=== PATIENT | male | born 1955 | race Caucasian/White ===

== ENCOUNTER 2017-01-18 17:44 | Inpatient (IN) | payer BC ==
[~2017-01-18] VITALS: Ht 175.3 cm; Wt 77.4 kg
[2017-01-18] MEDS ORDERED: IOHEXOL 350 MG/ML 10 ML VIAL (for RAD DIAG) IVCONTRAST ONE (17:45)
[2017-01-18 17:59] VITALS: O2SAT 100
[2017-01-18 18:03] LABS: I-STAT POTASSIUM 3.7 MMOL/L (3.5-4.9); I-STAT SODIUM 142 MMOL/L (138-146)
[2017-01-18 18:06] LABS: BASOPHIL # 0.1 TH/MM3 (0-0.2); BASOPHIL % 0.7 % (0.0-2.0); EOSINOPHIL # 0.1 TH/MM3 (0-0.4); EOSINOPHIL % 0.5 % (0.0-4.0); HEMATOCRIT 40.2 % (39.0-51.0); HEMO FLAGS DIFF FINAL; LYMPH % 18.3 % (9.0-44.0); LYMPHOCYTE # 2.2 TH/MM3 (1.0-4.8); MEAN CELL VOLUME 93.1 FL (80.0-100.0); MEAN CORPUSCULAR HEMOGLOBIN 32.2 PG (27.0-34.0); MEAN CORPUSCULAR HGB CONC 34.6 % (32.0-36.0); MONO % 5.4 % (0.0-8.0); NEUT % 75.1 % (16.0-70.0); PLATELET COUNT 220 TH/MM3 (150-450); RED BLOOD COUNT 4.32 MIL/MM3 (4.50-5.90); RED CELL DISTRIBUTION WIDTH 12.9 % (11.6-17.2)
[2017-01-18 18:18] LABS: APTT (PATIENT) 20.5 SEC (24.3-30.1)
[2017-01-18 18:25] VITALS: BP 157/81; PULSE 94; PULSE 98; RESP 18; O2SAT 100
--- NOTE | 2017-01-18 18:25 | RADRPT ---
EXAM DATE/TIME: 01/18/2017 17:36 [facility] COMPARISON: No previous studies available for comparison. INDICATIONS : Trauma Alert. MEDICAL HISTORY : non-responsive. SURGICAL HISTORY : non-responsive. ENCOUNTER: Initial ACUITY: 1 day PAIN SCORE: Non-responsive. LOCATION: pelvis FINDINGS: The patient is rotated. The fracture is not clearly identified. The hip joints appear grossly aligned . The patient is to have a CT of the abdomen and pelvis to follow. CONCLUSION: No acute disease. Lino Montenegro MD on January 18, 2017 at 18:23 Board Certified Radiologist. This report was verified electronically.
--- NOTE | 2017-01-18 18:25 | RADRPT ---
EXAM DATE/TIME: 01/18/2017 17:36 [facility] COMPARISON: No previous studies available for comparison. INDICATIONS : TRAUMA ALERT MEDICAL HISTORY : NON RESPONSIVE SURGICAL HISTORY : NON RESPONSIVE ENCOUNTER: Initial ACUITY: 1 day PAIN SCORE: Non-responsive. LOCATION: Bilateral chest FINDINGS: A single view of the chest demonstrates the lungs to be symmetrically aerated without evidence of mas s, infiltrate or effusion. The cardiomediastinal contours are unremarkable. Osseous structures are intact. There appears to be an old right clavicle deformity. CONCLUSION: No acute disease. Lino Montenegro MD on January 18, 2017 at 18:22 Board Certified Radiologist. This report was verified electronically.
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
--- NOTE | 2017-01-18 18:31 | RADRPT ---
EXAM DATE/TIME: 01/18/2017 18:01 [facility] COMPARISON: No previous studies available for comparison. INDICATIONS : Trauma Alert- Fall from tree. RADIATION DOSE: 45.69 CTDIvol (mGy) MEDICAL HISTORY : None SURGICAL HISTORY : Nephrectomy ENCOUNTER: Initial ACUITY: 1 day PAIN SCALE: 4/10 LOCATION: Bilateral cranial TECHNIQUE: Multiple contiguous axial images were obtained of the head. Using automated exposure control and adj ustment of the mA and/or kV according to patient size, radiation dose was kept as low as reasonably a chievable to obtain optimal diagnostic quality images. DICOM format image data is available electro nically for review and comparison. FINDINGS: CEREBRUM: The ventricles are normal for age. No evidence of midline shift, mass lesion, hemorrhage or acute in farction. No extra-axial fluid collections are seen. POSTERIOR FOSSA: The cerebellum and brainstem are intact. The 4th ventricle is midline. The cerebellopontine angle i s unremarkable. EXTRACRANIAL: The visualized portion of the orbits is intact. SKULL: The calvaria is intact. No evidence of skull fracture. CONCLUSION: Normal examination. Lino Montenegro MD on January 18, 2017 at 18:29 Board Certified Radiologist. This report was verified electronically.
--- NOTE | 2017-01-18 18:42 | RADRPT ---
EXAM DATE/TIME: 01/18/2017 18:01 [facility] COMPARISON: No previous studies available for comparison. INDICATIONS : Trauma Alert- Neck pain due to fall from tree. RADIATION DOSE: 15.42 CTDIvol (mGy) MEDICAL HISTORY : None SURGICAL HISTORY : Nephrectomy, left. ENCOUNTER: Initial ACUITY: 1 day PAIN SCALE: 3/10 LOCATION: Bilateral neck region. TECHNIQUE: Volumetric scanning of the cervical spine was performed. Multiplanar reconstructions in the sagittal, coronal and oblique axial planes were performed. Using automated exposure control and adjustment o f the mA and/or kV according to patient size, radiation dose was kept as low as reasonably achievable to obtain optimal diagnostic quality images. DICOM format image data is available electronically f or review and comparison. FINDINGS: VERTEBRAE: There is a fracture through the right C4 inferior facet. There also appears to be a fracture along th e same plane at the right C5 superior facet. These are best seen on the axial and sagittal images. No other fracture is seen. The cervical vertebral bodies are normal in height. C1 is intact. The C1-C2 articulation is maintained. The dens is intact. ALIGNMENT: No evidence of subluxation. C2-C3: There is mild disc osteophyte complex seen at the right lateral recess region. This causes a mild imp ress in on the anterior right side of the thecal sac. There continues to be CSF around the cord. The bony spinal canal is normal in size. The neural foramina are bilaterally patent. C3-C4: The disc demonstrates decreased height. There is mild bulging and osteophytic ridging causing a mild- to-moderate impression on the thecal sac. There is uncovertebral hypertrophy being worse on the right . There is some narrowing of the right neural foramina. The left neural foramen is patent. . C4-C5: Again noted are the fractures of the right inferior facet of C4 and the superior facet of C5 at the C 4-C5 facet joint without displacement. The disc demonstrates mild decreased height. There is mild dis c bulge and osteophytic ridging. There is uncovertebral hypertrophy. The neural foramina are bilatera lly patent. C5-C6: The disc demonstrates decreased height. There is diffuse disc bulge and osteophytic ridging causing a moderate impression on the thecal sac. There is uncovertebral hypertrophy. There is narrowing of the neural foramina bilaterally. C6-C7: The disc demonstrates decreased height. There is diffuse disc bulge and osteophytic ridging causing a moderate impression on the thecal sac. There is uncovertebral hypertrophy. There is narrowing of the neural foramina bilaterally. C7-T1: The bony spinal canal is normal in size. No evidence of disc bulge or herniation. The neural forami na are bilaterally patent. CONCLUSION: 1. Vertical fractures through the right inferior facet at C4 and the superior facet at C5 at the righ t C4-C5 facet joint. No displacement is seen. No other fracture is seen. 2. Degenerative change throughout the cervical spine as described above. Lino Montenegro MD on January 18, 2017 at 18:29 Board Certified Radiologist. This report was verified electronically.
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
[2017-01-18] MEDS ORDERED: LOVA20TA PO (18:50)
[2017-01-18] MEDS ORDERED: PRIL20TA2 PO (18:50)
--- NOTE | 2017-01-18 18:55 | RADRPT ---
EXAM DATE/TIME: 01/18/2017 18:07 [facility] COMPARISON: CT THORACIC SPINE W/O CONTRAST, January 18, 2017, 18:07. INDICATIONS : Trauma Alert- Chest pains from fall from tree. IV CONTRAST: 97 cc Omnipaque 350 (iohexol) IV RADIATION DOSE: 13.15 CTDIvol (mGy) ; Combined studies - Thorax/Abdomen/Pelvis MEDICAL HISTORY : None SURGICAL HISTORY : Nephrectomy. ENCOUNTER: Initial ACUITY: 1 day PAIN SCALE: 4/10 LOCATION: Bilateral chest TECHNIQUE: Volumetric scanning of the chest was performed. Using automated exposure control and adjustment of t he mA and/or kV according to patient size, radiation dose was kept as low as reasonably achievable to obtain optimal diagnostic quality images. DICOM format image data is available electronically for review and comparison. Follow-up recommendations for detected pulmonary nodules are based at a minimum on nodule size and pa tient risk factors according to Fleischner Society Guidelines. FINDINGS: LUNGS: There is minimal increased density at the posterior lung bases being more prominent on the right like ly with either atelectasis or minimal contusion. PLEURA: There is no pleural thickening or pleural effusion. MEDIASTINUM: The heart and great vessels demonstrate no acute abnormality. There is no mediastinal or hilar lymph adenopathy. AXILLAE: Within normal limits. No lymphadenopathy. SKELETAL: There appears to be a possible old healed deformity at the right clavicle. No acute fracture is seen. There is soft tissue swelling/hemorrhage in the deep subcutaneous fat over the back in the mid chest and upper abdomen region. MISCELLANEOUS: The patient is to have a CT of the abdomen and pelvis to follow. CONCLUSION: 1. Soft tissue swelling/hemorrhage in the subcutaneous fat at the back without a bony injury seen. 2. Minimal atelectasis or contusion of the posterior lung base. Lino Montenegro MD on January 18, 2017 at 18:47 Board Certified Radiologist. This report was verified electronically.
--- NOTE | 2017-01-18 19:04 | RADRPT ---
EXAM DATE/TIME: 01/18/2017 18:07 [facility] COMPARISON: No previous studies available for comparison. INDICATIONS : Trauma Alert- Abdomen pain from fall from tree. IV CONTRAST: 97 cc Omnipaque 350 (iohexol) IV ORAL CONTRAST: No oral contrast ingested. RADIATION DOSE: 13.15 CTDIvol (mGy) ; Combined studies - Thorax/Abdomen/Pelvis MEDICAL HISTORY : None SURGICAL HISTORY : Nephrectomy. ENCOUNTER: Initial ACUITY: 1 day PAIN SCALE: 4/10 LOCATION: Bilateral upper quadrant TECHNIQUE: Volumetric scanning of the abdomen and pelvis was performed. Using automated exposure control and ad justment of the mA and/or kV according to patient size, radiation dose was kept as low as reasonably achievable to obtain optimal diagnostic quality images. DICOM format image data is available electro nically for review and comparison. FINDINGS: LOWER LUNGS: Please see the CT of the chest report. LIVER: Homogeneous density without lesion. There is no dilation of the biliary tree. There are possible sma ll gallstone seen. SPLEEN: Normal size without lesion. PANCREAS: Within normal limits. KIDNEYS: No acute abnormality seen in the kidneys. No hydronephrosis is seen. There is a 1.7 cm fat density ma ss at the posterior mid left kidney likely related to an angiomyolipoma. There are adjacent clips or calcification in this region which can suggest the patient may have had prior resection or biopsy. Th ere is also a small 0.6 cm cyst at the inferior left kidney. ADRENAL GLANDS: Within normal limits. VASCULAR: There is no aortic aneurysm. BOWEL/MESENTERY: The stomach, small bowel, and colon demonstrate no acute abnormality. There is no free intraperitone al air or fluid. ABDOMINAL WALL: Within normal limits. RETROPERITONEUM: There is no lymphadenopathy. BLADDER: No wall thickening or mass. REPRODUCTIVE: Within normal limits. Prostatic calcifications are present. INGUINAL: There is no lymphadenopathy or hernia. MUSCULOSKELETAL: A fracture is not clearly seen. The patient is to have a CT of the thoracic and lumbar spine. CONCLUSION: 1. No acute abnormality is seen. 2. 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 3. Suspected small gallstones. Lino Montenegro MD on January 18, 2017 at 18:57 Board Certified Radiologist. This report was verified electronically.
[2017-01-18 19:08] LABS: ALCOHOL LESS THAN 3 MG/DL (0-5)
--- NOTE | 2017-01-18 19:08 | RADRPT ---
EXAM DATE/TIME: 01/18/2017 18:07 [facility] COMPARISON: No previous studies available for comparison. INDICATIONS : Trauma Alert- Back pain due to fall from tree. RADIATION DOSE: ; Reconstructed from previous dataset, no dose MEDICAL HISTORY : None SURGICAL HISTORY : Nephrectomy ENCOUNTER: Initial ACUITY: 1 day PAIN SCALE: 6/10 LOCATION: Bilateral back region. TECHNIQUE: Volumetric scanning of the thoracic spine was performed. Multiplanar reconstructions in the sagittal , coronal and oblique axial planes were performed. Using automated exposure control and adjustment o f the mA and/or kV according to patient size, radiation dose was kept as low as reasonably achievable to obtain optimal diagnostic quality images. DICOM format image data is available electronically f or review and comparison. FINDINGS: The vertebral bodies of the thoracic spine are in normal alignment without evidence of subluxation. Vertebral body height is maintained. No fractures are seen. Marginal osteophytes are seen in the mid and lower thoracic spine. There is increased soft tissue density seen in the deep subcutaneous fat o thomas the back in the midline. T1-T2: Normal. T2-T3: The thecal sac has a normal diameter. No evidence of disc bulge or protrusion. T3-T4: The thecal sac has a normal diameter. No evidence of disc bulge or protrusion. T4-T5: The thecal sac has a normal diameter. No evidence of disc bulge or protrusion. T5-T6: The thecal sac has a normal diameter. No evidence of disc bulge or protrusion. T6-T7: The thecal sac has a normal diameter. No evidence of disc bulge or protrusion. T7-T8: The thecal sac has a normal diameter. No evidence of disc bulge or protrusion. T8-T9: The thecal sac has a normal diameter. No evidence of disc bulge or protrusion. T9-T10: The thecal sac has a normal diameter. No evidence of disc bulge or protrusion. T10-T11: The thecal sac has a normal diameter. No evidence of disc bulge or protrusion. T11-T12: The thecal sac has a normal diameter. No evidence of disc bulge or protrusion. T12-L1: The thecal sac has a normal diameter. No evidence of disc bulge or protrusion. CONCLUSION: No fractures seen. There is soft tissue swelling seen in the deep subcutaneous fat in the midline in the back. Lino Montenegro MD on January 18, 2017 at 19:03 Board Certified Radiologist. This report was verified electronically.
--- NOTE | 2017-01-18 19:54 | PD.CAR.PN ---
CVT Progress Note Subjective/Hospital Course: Patient fell about 20 feet out of a tree. No LOC. Ful workup reveals only C4 and C5 facet fx Admit, MRI J Objective: Vital Signs Date Time Temp Pulse Resp B/P (MAP) Pulse Ox O2 Delivery O2 Flow Rate FiO2 01/18/17 18:25 100 Room Air 01/18/17 18:25 94 18 157/81 (106) 100 Room Air 01/18/17 18:25 98 18 157/81 (106) 100 Room Air 01/18/17 17:59 100 21 Labs: Laboratory Tests Test 01/18/17 17:45 White Blood Count 12.0 TH/MM3 (4.0-11.0) Red Blood Count 4.32 MIL/MM3 (4.50-5.90) Hemoglobin 13.9 GM/DL (13.0-17.0) Bedside Hemoglobin 13.6 G/DL (12.0-17.0) Hematocrit 40.2 % (39.0-51.0) Bedside Hematocrit 40.0 % (38.0-51.0) Mean Corpuscular Volume 93.1 FL (80.0-100.0) Mean Corpuscular Hemoglobin 32.2 PG (27.0-34.0) Mean Corpuscular Hemoglobin Concent 34.6 % (32.0-36.0) Red Cell Distribution Width 12.9 % (11.6-17.2) Platelet Count 220 TH/MM3 (150-450) Mean Platelet Volume 8.1 FL (7.0-11.0) Neutrophils (%) (Auto) 75.1 % (16.0-70.0) Lymphocytes (%) (Auto) 18.3 % (9.0-44.0) Monocytes (%) (Auto) 5.4 % (0.0-8.0) Eosinophils (%) (Auto) 0.5 % (0.0-4.0) Basophils (%) (Auto) 0.7 % (0.0-2.0) Neutrophils # (Auto) 9.0 TH/MM3 (1.8-7.7) Lymphocytes # (Auto) 2.2 TH/MM3 (1.0-4.8) Monocytes # (Auto) 0.6 TH/MM3 (0-0.9) Eosinophils # (Auto) 0.1 TH/MM3 (0-0.4) Basophils # (Auto) 0.1 TH/MM3 (0-0.2) CBC Comment DIFF FINAL Differential Comment Prothrombin Time 11.0 SEC (9.8-11.6) Prothromb Time International Ratio 1.0 RATIO Activated Partial Thromboplast Time 20.5 SEC (24.3-30.1) Bedside Sodium 142 MMOL/L (138-146) Bedside Potassium 3.7 MMOL/L (3.5-4.9) Bedside Chloride 104 MMOL/L (98-109) Bedside Blood Urea Nitrogen 22 MG/DL (8-26) Bedside Creatinine 1.2 MG/DL (0.8-1.3) Bedside Glucose 104 MG/DL (60-95) Ethyl Alcohol Level LESS THAN 3 MG/DL (0-5) Result Diagram: 01/18/17 1745 Caitlin Browne MD Jan 18, 2017 19:54
[2017-01-18] MEDS ORDERED: MORPHINE SULFATE 4 MG/ML INJ IV PUSH PRN (20:00)
[2017-01-18] MEDS ORDERED: ONDANSETRON HCL 4 MG/2 ML VIAL IV PUSH PRN (20:00)
[2017-01-18] MEDS ORDERED: NALOXONE HCL 0.4 MG/ML AMP IV PUSH PRN (20:00)
[2017-01-18] MEDS ORDERED: Post-op Orders (for Pharmacy) MISC XX ONE (20:00)
[2017-01-18] MEDS ORDERED: SODIUM CHLORIDE 0.9% FLUSH 10 ML FLUSH IV FLUSH PRN (20:00)
[2017-01-18] MEDS: ACETAMINOPHEN/HYDROcodone 325 MG/5 MG TAB PO PRN (20:08)
[2017-01-18] MEDS ORDERED: LIDOCAINE HCL 1% 50 ML VIAL INFIL ONE (20:30)
--- NOTE | 2017-01-18 20:45 | PD ---
Physical Exam Date Seen by Provider: Jan 18, 2017 Time Seen by Provider: 20:44 Narrative I was asked by Dr. Peacock to repair laceration to the patient's left forearm. Please see her documentation for full history and physical. Data Data Last Documented VS Vital Signs Date Time Temp Pulse Resp B/P (MAP) Pulse Ox O2 Delivery O2 Flow Rate FiO2 01/18/17 18:25 100 Room Air 01/18/17 18:25 94 18 157/81 (106) 01/18/17 17:59 21 Orders Orders I-Stat Profile (01/18/17 17:46) I-Stat Creatinine (01/18/17 17:46) Complete Blood Count With Diff (01/18/17 17:46) Prothrombin Time / Inr (Pt) (01/18/17 17:46) Act Partial Throm Time (Ptt) (01/18/17 17:46) Type And Screen (01/18/17 17:46) Alcohol (Ethanol) (01/18/17 17:46) Drug Screen, Random Urine (01/18/17 17:46) Pelvis, Ap Only (Routine) (01/18/17 17:46) Ct Brain W/O Iv Contrast(Rout) (01/18/17 17:46) Ct Cerv Spine W/O Contrast (01/18/17 17:46) Ct Abd/Pel W Iv Contrast(Rout) (01/18/17 17:46) Ct Thorax/ Chest W Iv Contrast (01/18/17 17:46) Ct Thor Spine W/O Contrast (01/18/17 17:46) Ct Lumb Spine W/O Contrast (01/18/17 17:46) Ct Facial Bones W/O Iv Cont (01/18/17 17:46) Iv Access Insert/Monitor (01/18/17 17:46) Ecg Monitoring (01/18/17 17:46) Oximetry (01/18/17 17:46) Oxygen Administration (01/18/17 17:46) Chest, Single Ap (01/18/17 17:46) Iohexol 350 Inj (Omnipaque 350 Inj) (01/18/17 17:45) Admit Order (Ed Use Only) (01/18/17 ) [place] J Collar (01/18/17 ) Labs Laboratory Tests Test 01/18/17 17:45 White Blood Count 12.0 TH/MM3 Red Blood Count 4.32 MIL/MM3 Hemoglobin 13.9 GM/DL Bedside Hemoglobin 13.6 G/DL Hematocrit 40.2 % Bedside Hematocrit 40.0 % Mean Corpuscular Volume 93.1 FL Mean Corpuscular Hemoglobin 32.2 PG Mean Corpuscular Hemoglobin Concent 34.6 % Red Cell Distribution Width 12.9 % Platelet Count 220 TH/MM3 Mean Platelet Volume 8.1 FL Neutrophils (%) (Auto) 75.1 % Lymphocytes (%) (Auto) 18.3 % Monocytes (%) (Auto) 5.4 % Eosinophils (%) (Auto) 0.5 % Basophils (%) (Auto) 0.7 % Neutrophils # (Auto) 9.0 TH/MM3 Lymphocytes # (Auto) 2.2 TH/MM3 Monocytes # (Auto) 0.6 TH/MM3 Eosinophils # (Auto) 0.1 TH/MM3 Basophils # (Auto) 0.1 TH/MM3 CBC Comment DIFF FINAL Differential Comment Prothrombin Time 11.0 SEC Prothromb Time International Ratio 1.0 RATIO Activated Partial Thromboplast Time 20.5 SEC Bedside Sodium 142 MMOL/L Bedside Potassium 3.7 MMOL/L Bedside Chloride 104 MMOL/L Bedside Blood Urea Nitrogen 22 MG/DL Bedside Creatinine 1.2 MG/DL Bedside Glucose 104 MG/DL Ethyl Alcohol Level LESS THAN 3 MG/DL MDM Supervised Visit with LUIZA: No Procedures Procedure Narrative LACERATION LOCATION: Left forearm LENGTH: 3 cm NUMBER OF STITCHES/WOODY: 6 simple interrupted sutures REPAIR: The area of the laceration was prepped with Betadine and sterilely draped. The laceration was infiltrated with 1% lidocaine. The wound was copiously irrigated and explored without evidence of foreign body, tendon injury or neurovascular injury. The wound was closed using 4-0 Prolene. This was a single layer repair. A sterile dressing was applied. The patient was advised to keep the dressing clean and dry. Patient tolerated the procedure well. Diagnosis Primary Impression: Cervical spine fracture Qualified Codes: S12.301A - Unspecified nondisplaced fracture of fourth cervical vertebra, initial encounter for closed fracture Tori Aguilar Jan 18, 2017 20:45
--- NOTE | 2017-01-18 20:53 | RADRPT ---
EXAM DATE/TIME: 01/18/2017 18:07 [facility] COMPARISON: No previous studies available for comparison. INDICATIONS : Trauma Alert- Low back pain from fall from tree. RADIATION DOSE: ; Reconstructed from previous data set, no dose MEDICAL HISTORY : None SURGICAL HISTORY : Nephrectomy. ENCOUNTER: Initial ACUITY: 1 day PAIN SCALE: 7/10 LOCATION: Bilateral lower back. TECHNIQUE: Volumetric scanning of the lumbar spine was performed. Multiplanar reconstructions in the sagittal, coronal and oblique axial planes were performed. Using automated exposure control and adjustment of the mA and/or kV according to patient size, radiation dose was kept as low as reasonab ly achievable to obtain optimal diagnostic quality images. DICOM format image data is available [facility] for review and comparison. FINDINGS: VERTEBRAE: Normal vertebral body height. Mild marginal osteophytes are seen throughout. ALIGNMENT: No evidence of subluxation. T12-L1: The thecal sac has a normal diameter. No evidence of disc bulge or protrusion. The neural foramina are patent bilaterally. L1-L2: Disc demonstrates decreased height. There is calcification at the disc. There is slight b ulging without significant stenosis. The neural foramina are normal. L2-L3: The thecal sac has a normal diameter. No evidence of disc bulge or protrusion. The neural foramina are patent bilaterally. L3-L4: The thecal sac has a normal diameter. No evidence of disc bulge or protrusion. The neural foramina are patent bilaterally. L4-L5: There is minimal bulging without significant stenosis. The neural foramina are normal. L5-S1: Disc demonstrates decreased height. There is mild diffuse disc bulge and osteophytic ridgi ng. There is a focal area of gas likely related to degenerative change at the posterior inferior asp ect of the L5 vertebral body. There is mild facet hypertrophy. There is narrowing of the neural for sandra bilaterally. CONCLUSION: 1. No acute abnormality is seen. 2. Degenerative change at the L1-L2 and L5-S1 levels as described above. The chronic changes are more prominent at the L5-S1 level. Lino Montenegro MD on January 18, 2017 at 19:07 Board Certified Radiologist. This report was verified electronically.
[2017-01-18 21:45] VITALS: BP 138/71; PULSE 99; RESP 18; TEMP 97.9; O2SAT 98
[2017-01-18] MEDS: FAMOTIDINE 20 MG TAB PO SCH (22:52)
[2017-01-18] MEDS: SODIUM CHLORIDE 0.9% FLUSH 10 ML FLUSH IV FLUSH SCH (22:54)
[2017-01-19 00:50] VITALS: BP 131/67; PULSE 80; RESP 18; TEMP 98.3; O2SAT 99
[2017-01-19] MEDS: ACETAMINOPHEN/HYDROcodone 325 MG/5 MG TAB PO PRN ×2 (01:56→13:03)
[2017-01-19 04:28] VITALS: BP 107/61; PULSE 66; RESP 18; TEMP 98; O2SAT 98
[2017-01-19] MEDS ORDERED: ACETAMINOPHEN/HYDROcodone 325 MG/10 MG TAB PO PRN (07:15)
[2017-01-19] MEDS ORDERED: LACTULOSE SYRUP 20 GM/30 ML CUP PO PRN (07:15)
[2017-01-19 07:25] LABS: AUTOMATED NEUTROPHIL # 4.7 TH/MM3 (1.8-7.7); BASOPHIL % 0.5 % (0.0-2.0); EOSINOPHIL # 0.1 TH/MM3 (0-0.4); EOSINOPHIL % 1.3 % (0.0-4.0); HEMATOCRIT 39.3 % (39.0-51.0); HEMO FLAGS DIFF FINAL; LYMPH % 28.8 % (9.0-44.0); LYMPHOCYTE # 2.3 TH/MM3 (1.0-4.8); MEAN CELL VOLUME 93.6 FL (80.0-100.0); MEAN CORPUSCULAR HEMOGLOBIN 32.3 PG (27.0-34.0); MEAN CORPUSCULAR HGB CONC 34.5 % (32.0-36.0); MONO % 9.9 % (0.0-8.0); NEUT % 59.5 % (16.0-70.0); PLATELET COUNT 207 TH/MM3 (150-450); RED CELL DISTRIBUTION WIDTH 12.9 % (11.6-17.2); WHITE BLOOD COUNT 7.9 TH/MM3 (4.0-11.0)
[2017-01-19 07:46] LABS: POTASSIUM 3.5 MEQ/L (3.5-5.1)
[2017-01-19 08:00] VITALS: BP 133/77; PULSE 65; RESP 18; TEMP 96.6; O2SAT 99
--- NOTE | 2017-01-19 08:00 | RADRPT ---
EXAM DATE/TIME: 01/19/2017 07:34 [facility] COMPARISON: CHEST SINGLE AP, January 18, 2017, 17:36. INDICATIONS : Trauma to chest post fall yesterday MEDICAL HISTORY : None. SURGICAL HISTORY : Nephrectomy ENCOUNTER: Subsequent ACUITY: 1 day PAIN SCORE: 0/10 LOCATION: Bilateral chest FINDINGS: A single view of the chest demonstrates the lungs to be symmetrically aerated without evidence of mas s, infiltrate or effusion. The cardiomediastinal contours are unremarkable. Osseous structures are intact. CONCLUSION: No acute disease. No significant change has occurred. Tien Wright MD on January 19, 2017 at 7:57 Board Certified Radiologist. This report was verified electronically.
[2017-01-19] MEDS: FAMOTIDINE 20 MG TAB PO SCH (08:45)
[2017-01-19] MEDS: SODIUM CHLORIDE 0.9% FLUSH 10 ML FLUSH IV FLUSH SCH (08:45)
[2017-01-19] MEDS: METHOCARBAMOL 500 MG TAB PO SCH ×2 (08:45→15:24)
[2017-01-19] MEDS ORDERED: DOCUSATE SODIUM 50 MG/SENNA 8.6 MG TAB PO SCH (09:00)
--- NOTE | 2017-01-19 10:32 | RADRPT ---
EXAM DATE/TIME: 01/19/2017 09:57 [facility] COMPARISON: CT CERVICAL SPINE W/O CONTRAST, January 18, 2017, 18:01. INDICATIONS : Trauma. Abnormal CT. MEDICAL HISTORY : Renal carcinoma. SURGICAL HISTORY : Renal tumor removal. ENCOUNTER: Initial ACUITY: 1 day PAIN SCORE: 5/10 LOCATION: Paraspinal TECHNIQUE: Multiplanar, multisequence MRI examination of the cervical spine was performed. FINDINGS: VERTEBRAE: Normal vertebral body height. Homogeneous marrow signal. Patient has a known fracture through the ri ght facet at C4-[address] Cervical Spine. ALIGNMENT: No evidence of subluxation. CORD: Normal configuration and signal. POST FOSSA: The cerebellar tonsils are normal in position. C2-C3: Right paracentral bulging. The neural foramina are patent bilaterally. C3-C4: Broad-based bulging with disc osteophyte complex slightly more on the right than the left. There is n arrowing of the right neural foramina. The left neural foramina is patent. C4-C5: Broad-based and right lateral bulging with narrowing of the right neural foramina. The left neural fo ramen is patent. C5-C6: Diffuse broad-based bulging disc osteophyte complex. Narrowing of the neural foramina bilaterally. Mi ld to moderate spinal canal stenosis. C6-C7: Diffuse broad-based bulging with narrowing of the neural foramina bilaterally. Mild to moderate spina l canal stenosis. C7-T1: The thecal sac has a normal configuration. There is no evidence of disc herniation or spinal canal s tenosis. The neural foramina are patent bilaterally. CONCLUSION: 1. Mild to moderate spinal canal stenosis C5-6 and C6-7. 2. Broad-based and right lateral bulging at C4-5 3. Broad based bulging with disc osteophyte complex at C3-4 4. Right paracentral bulging at C2-C3 5. Known nondisplaced fracture through the right facet at C4-5. Tien Wright MD on January 19, 2017 at 10:24 Board Certified Radiologist. This report was verified electronically.
[2017-01-19] MEDS ORDERED: BENZOCAINE 6 MG/MENTHOL 10 MG LOZENGE BUCCAL PRN (11:15)
[2017-01-19] MEDS ORDERED: BACITRACIN TOP OINT 15 GM TUBE TOPICAL SCH (11:15)
[2017-01-19 12:00] VITALS: BP 149/82; PULSE 66; RESP 16; TEMP 97; O2SAT 98
[2017-01-19] MEDS ORDERED: HYDR-3516 PO (12:41)
[2017-01-19] MEDS ORDERED: METH500T3 PO (12:41)
[2017-01-19] MEDS ORDERED: SENN1TAB PO (12:41)
--- NOTE | 2017-01-19 12:56 | HHI.DS ---
Discharge Summary Admission Date Jan 18, 2017 at 19:27 Discharge Date: Jan 19, 2017 Admitting Diagnosis cervical spine fracture (1) Cervical spine fracture ICD Codes: S12.9XXA - Fracture of neck, unspecified, initial encounter Status: Acute (2) Concussion ICD Codes: S06.0X9A - Concussion with loss of consciousness of unspecified duration, initial encounter (3) Back avulsion ICD Codes: S21.209A - Unspecified open wound of unspecified back wall of thorax without penetration into thoracic cavity, initial encounter (4) Laceration of left forearm ICD Codes: S51.812A - Laceration without foreign body of left forearm, initial encounter (5) Right pulmonary contusion ICD Codes: S27.321A - Contusion of lung, unilateral, initial encounter Brief History S/P Trauma: Fall CBC/BMP: 01/19/17 0705 01/19/17 0705 Significant Findings Laboratory Tests Test 01/18/17 17:45 01/18/17 22:20 01/19/17 07:05 White Blood Count 12.0 TH/MM3 (4.0-11.0) Red Blood Count 4.32 MIL/MM3 (4.50-5.90) 4.20 MIL/MM3 (4.50-5.90) Neutrophils (%) (Auto) 75.1 % (16.0-70.0) Neutrophils # (Auto) 9.0 TH/MM3 (1.8-7.7) Activated Partial Thromboplast Time 20.5 SEC (24.3-30.1) Bedside Glucose 104 MG/DL (60-95) Monocytes (%) (Auto) 9.9 % (0.0-8.0) Calcium Level 8.3 MG/DL (8.5-10.1) Estimat Glomerular Filtration Rate 68 ML/MIN (>89) Imaging Last Impressions Cervical Spine MRI 01/19/17 0600 Signed Impressions: Service Date/Time: Thursday, January 19, 2017 09:57 - CONCLUSION: 1. Mild to moderate spinal canal stenosis C5-6 and C6-7. 2. Broad-based and right lateral bulging at C4-5 3. Broad based bulging with disc osteophyte complex at C3-4 4. Right paracentral bulging at C2-C3 5. Known nondisplaced fracture through the right facet at C4-5. Tien Wright MD Chest X-Ray 01/19/17 0000 Signed Impressions: Service Date/Time: Thursday, January 19, 2017 07:34 - CONCLUSION: No acute disease. No significant change has occurred. Tien Wright MD Thoracic Spine CT 01/18/17 174 Signed Impressions: Service Date/Time: Wednesday, January 18, 2017 18:07 - CONCLUSION: No fractures seen. There is soft tissue swelling seen in the deep subcutaneous fat in the midline in the back. Lino Montenegro MD Pelvis X-Ray [id number]/[id number] Signed Impressions: Service Date/Time: Wednesday, January 18, 2017 17:36 - CONCLUSION: No acute disease. Lino Montenegro MD Maxillofacial CT [id number]/[id number] Signed Impressions: Service Date/Time: Wednesday, January 18, 2017 18:01 - CONCLUSION: 1. No fracture is seen. 2. Suspected BB at the left kicking machine operator muscle. 3. Left ethmoid sinus disease. Lino Montenegro MD Lumbar Spine CT [id number]/[id number] Signed Impressions: Service Date/Time: Wednesday, January 18, 2017 18:07 - CONCLUSION: 1. No acute abnormality is seen. 2. Degenerative change at the L1-L2 and L5-S1 levels as described above. The chronic changes are more prominent at the L5-S1 level. Lino Montenegro MD Head CT [id number]/[id number] Signed Impressions: Service Date/Time: Wednesday, January 18, 2017 18:01 - CONCLUSION: Normal examination. Lino Montenegro MD Chest CT [id number]/18/171745 Signed Impressions: Service Date/Time: Wednesday, January 18, 2017 18:07 - CONCLUSION: 1. Soft tissue swelling/hemorrhage in the subcutaneous fat at the back without a bony injury seen. 2. Minimal atelectasis or contusion of the posterior lung base. Lino Montenegro MD Cervical Spine CT [id number]/18/171745 Signed Impressions: Service Date/Time: Wednesday, January 18, 2017 18:01 - CONCLUSION: 1. Vertical fractures through the right inferior facet at C4 and the superior facet at C5 at the right C4-C5 facet joint. No displacement is seen. No other fracture is seen. 2. Degenerative change throughout the cervical spine as described above. Lino Montenegro MD Abdomen/Pelvis CT 01/18/17 174 Signed Impressions: Service Date/Time: Wednesday, January 18, 2017 18:07 - CONCLUSION: 1. No acute abnormality is seen. 2. 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 3. Suspected small gallstones. Lino Montenegro MD PE at Discharge GENERAL: 61-year-old well-nourished, well developed male lying in bed with cervical collar on. SKIN: Warm and dry. Abrasions noted to face. Dressing to back removed. 10cm x1cm avulsion noted on right lumbar area. HEAD: Normocephalic. ENT: No nasal bleeding or discharge. Mucous membranes pink and moist. NECK: Trachea midline. No JVD. [place] J collar in place. CARDIOVASCULAR: Regular rate and rhythm. RESPIRATORY: No accessory muscle use. Lungs clear to auscultation. Breath sounds equal bilaterally. GASTROINTESTINAL: Abdomen soft, non-tender, nondistended. + BS. MUSCULOSKELETAL: Extremities without cyanosis, or edema. MAEW. + perfused, + sensation NEUROLOGICAL: Awake and alert. Normal speech. Hospital Course CABAZON: Fell out of a tree approximately 20 feet. No LOC. INJURIES: C4 - C5 facet fx Back avulsion RIGHT Lung contusion LEFT forearm lac (sutures) Concussion PMHx: Hyperlipidemia Diet: Regular Pulm: IS Pain: [place], Robaxin Activity: OOB. PT and OT ordered GI: Pepcid Bowel: Jojo-colace, PRN Lactulose. LBM 0 DVT: SCDs C4 - C5 facet fx Neurosurgery consulted Nonoperative management Maintain cervical collar for 3 months Pain control No heavy lifting Cleared for discharge, follow-up as outpatient Back avulsion Cleanse wound daily with soap and water. Apply antibacterial ointment and cover with dry dressing. RIGHT Lung contusion Supportive care Pulmonary toileting OOB LEFT forearm lac Wound care: Cleanse daily with soap and water. Leave open to air. Suture removal in 8-10 days Concussion Supportive care Avoid second head injury Post-concussive education Follow-up with PCP in 1 week Plan of care discussed with patient and at bedside. Patient aware and verbally consents to plan. Patient is clear from trauma surgery standpoint to safely discharge home. Follow-up with neurosurgery in [place]. Pt Condition on Discharge: Stable Discharge Disposition: Discharge Home Discharge Instructions DIET: Follow Instructions for: As Tolerated, No Restrictions Activities you can perform: Full Weight Bearing, See Additionl Instruction Activities to Avoid: Lifting/Bending, Strenuous Activity Other Activity Instructions: Wear cervical collar at all times. No driving for 2 weeks. Jeff Appiah Jan 19, 2017 12:55
--- NOTE | 2017-01-19 13:06 | MH ---
cc: MD LUISANA,DENNY DATE OF ADMISSION: 01/18/2017 ADMITTING DIAGNOSIS: C4-5 facet fracture and fall. HISTORY OF PRESENT ILLNESS: This pleasant 51-shilpa gentleman fell out of a tree while cutting some branches about 20 feet and landed on the soft ground. He was transferred to us as a Priority One Trauma Alert. On arrival, the patient was on a spinal board with a cervical collar placed, awake, alert, oriented and complaining about some back pain and numbness in the right arm. PAST MEDICAL HISTORY: 1. Hyperlipidemia. PAST SURGICAL HISTORY Negative. SOCIAL HISTORY: The patient does not smoke or drink. MEDICATIONS: 1. Losartan. 2. Prilosec. PHYSICAL EXAMINATION: GENERAL: The physical examination reveals a pleasant 60-csb-dbnq-old gentleman in no acute distress. HEAD, EYES, EARS, NOSE, THROAT: Normocephalic. No trauma to the head. Pupils equal and reactive. Extraocular muscles intact. No hemotympanum. No saenz sign. NECK: Bilateral carotid pulses. No bruits. The patient is tender over the right shoulder. The cervical collar was carefully repositioned and replaced with a [place] J. CHEST: Bilateral breath sounds. HEART: Regular rhythm. No signs of trauma to the chest. ABDOMEN: Soft. Active bowel sounds. No rebound. No guarding. No sign of trauma to the abdomen. PELVIS: Stable. EXTREMITIES: The patient has bilateral femoral, popliteal, dorsalis pedis and posterior tibial pulses. Bilateral brachial, radial and ulnar pulses. NEUROLOGIC: [place] Coma Scale is 15. The patient moves all four extremities. Motor and sensory is intact. BACK: Log-rolling to the back reveals one longitudinal gash in the middle of the back in the form of a sort of a deep abrasion which is about 4 mm wide and about 3 mm deep into the skin but not through the skin. This was debrided. There is really nothing to put together here and it will be allowed to heal on its own. IMPRESSION: The patient underwent full workup and he was found to have C4-5 nondisplaced facet fracture; therefore, the patient underwent MRI today which reveals the same without any signs of ligamentous or tendon injuries. Denny GROVE/LIV /12:46 PM /12:57 PM
--- NOTE | 2017-01-19 14:42 | MB ---
cc: IGNACIA NÚÑEZ M.D. DATE OF CONSULTATION: 01/19/2017. REASON FOR CONSULTATION: Right C4-5 facet fracture. HISTORY OF PRESENT ILLNESS: 61-year-old gentleman who presented to the [facility] Emergency Room last evening after a fall while trimming a tree about 20 feet and fell back on his head as he struck the stairs and the grass. He denies loss of consciousness. Initially he had complaints of neck pain and some numbness in his hands, which resolved after a few minutes although he has been complaining of some "prickly" feeling distally in his forearm and hands bilaterally. He denies any weakness. He denies any incontinence. An extensive trauma workup was undertaken including CT scan of the head as well as CT scan of the cervical spine, thoracic spine and lumbar spine. The only finding is a right C4-5 facet nondisplaced fracture. He does have multilevel degenerative changes in his cervical spine. He was maintained in a cervical collar and overnight states that he is doing well. He has been ambulating and he is requesting we discharge home. 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 MRI scan of cervical spine was also obtained and reviewed and shows disk protrusions at C4-5, C5-6 and C6-7 levels with mild to moderate spinal stenosis along with moderate right foraminal stenosis at C3-4 and C4-5 levels some disc protrusions. No intrinsic spinal cord changes are noted. He also had a laceration of the left forearm which was repaired by the emergency room physician. PAST MEDICAL HISTORY: 1. Hyperlipidemia. 2. Gastroesophageal reflux. MEDICATIONS: 1. Prilosec 20 milligrams daily. 2. Lovastatin 20 milligrams daily. ALLERGIES: NO KNOWN DRUG ALLERGIES. SOCIAL HISTORY: He is and is is here with him. 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 They are contemplating buying a house locally. He denies any tobacco use. He drinks alcohol usually on the weekends. REVIEW OF SYSTEMS: Pertinent positives mentioned below, otherwise negative including mild neck pain. He complains of some prickly sensation in his forearm and hands which is improving. He initially had some transient numbness in his right hand more than left which has resolved. He denies any weakness in the upper or lower extremities. He denies any incontinence. No chest pain. No shortness of breath. No abdominal pain. He does complain of some soft tissue superficial thoracic pain from a large abrasion. No history of easy bleeding or bruising. No fevers or chills. No recent weight gain or weight loss. No double vision or blurred vision. No nausea or vomiting. FAMILY HISTORY: Family history is unremarkable. LABORATORY STUDIES: White blood cell count 7.9, hemoglobin 13.5, platelet count 207,000. PT 11. INR 1.0. PTT 20.5. Sodium 139, potassium 3.5, BUN 15, creatinine 0.95, glucose 96. Toxicology screen is negative. PHYSICAL EXAMINATION: GENERAL: He is a well-developed gentleman who is resting in his bed with at bedside in no apparent distress. VITAL SIGNS: Temperature 96.6, pulse is 65, respiratory rate 18, blood pressure 133/77, oxygen saturation 99% on room air. HEAD: No saenz or raccoon signs. NECK: The neck is immobilized in a Lewis J collar. CHEST: Clear to auscultation bilaterally. HEART: Regular rate and rhythm. Normal S1 and S2. ABDOMEN: The abdomen is soft, nontender. Positive bowel sounds. EXTREMITIES: No cyanosis or edema. No deformities with good distal pulses. SKIN: He has the abrasion on the lower back, which is superficial. No other deformities. NEUROLOGICAL EXAMINATION: He is awake, alert, Cranial nerves II through XII are grossly intact. Motor strength is 5/5 in the upper and lower extremities. Negative Babinski. Negative Edwin. Light touch sensation is intact. Face is symmetric. Tongue is midline. Speech is fluent. IMPRESSION: Right C4-5 nondisplaced facet fracture which is a stable injury. He does have multilevel cervical stenosis, mild to moderate, with degenerative disc disease and protrusions involving the right C3-4 and C4-5 with foraminal stenosis and mild to moderate spinal stenosis from C3-C6 levels but no intrinsic cord changes are noted. PLAN: 1. I recommend Lewis J cervical collar use for the next six weeks. 2. He is to avoid any lifting, pushing, pulling more than 10 pounds or driving during this time period. 3. The right C4-5 facet fractures could take anywhere from six to twelve weeks to heal. 4. He is scheduled to go back to [place], [place] in the next few days and will follow up with his local neurosurgeon as they are in the medical field and very familiar with the specialists there locally. 5. I have recommended that he establish with a neurosurgeon when he gets back home and also have follow up every six weeks with cervical spine x-rays to assess alignment and fracture healing. 6. Discussed with the patient and his who understand and agree and also discussed with trauma surgery. MD TAMELA Varela/ILV /12:56 PM /2:22 PM
--- NOTE | 2017-01-19 17:10 | OTSOAPIP ---
TIME SESSION COMPLETED: 163 TREATMENT TIME: 0 MINS. CHART REVIEWED. RECEIVED ORDER FOR OT CONSULT FROM KELSEY PALMER. ATTEMPTED TO SEE FOR ASSESSMENT AND PT WAS ALREADY DISCHARGED. Therapist: COLIN HUBER OT/L Signature on file
== END 2017-01-19 16:00 | disposition home or self-care (01) | DRG 552 ==
LOC: NEPI 17:44 → EDBD 19:27 → NEDA 19:27 → N06B 21:36
PROVIDERS: ADMIT Surgery; ATTEND Surgery
PROC: 0HQEXZZ Repair Left Lower Arm Skin, External Approach (ICD-10-PCS; principal; 2017-01-18)
DX: S12.301A Unspecified nondisplaced fracture of fourth cervical vertebra, initial encounter for closed fracture (principal); S27.321A Contusion of lung, unilateral, initial encounter; E78.5 Hyperlipidemia, unspecified; S51.812A Laceration without foreign body of left forearm, initial encounter; S06.0X0A Concussion without loss of consciousness, initial encounter; S21.209A Unspecified open wound of unspecified back wall of thorax without penetration into thoracic cavity, initial encounter; S12.401A Unspecified nondisplaced fracture of fifth cervical vertebra, initial encounter for closed fracture; K21.9 Gastro-esophageal reflux disease without esophagitis; W14.XXXA Fall from tree, initial encounter
CPT/HCPCS: 12002; 70450; 70486; 71010; 71260; 72125; 72128; 72131; 72141; 72170; 74177; 80048; 80307; 82435; 82565; 82947; 84132; 84295; 84520; 85025; 85610; 85730; 86850; 86900; 86901; 90471; 99291; G0390; L0150; L0172; Q9967